=== PATIENT | female | born 1955 ===

== ENCOUNTER 2017-04-06 10:54 | Emergency (ER) | payer BC ==
[2017-04-06 11:19] VITALS: BP 129/88
--- NOTE | 2017-04-06 12:15 | RAD ---
INDICATION: Left toe injury is COMPARISON: None TECHNIQUE: 3 views views were obtained. There is no lateral image FINDINGS: There is no definitive fracture. Evaluation is limited due to the presence of hammertoe deformities. If there is a particular digit of concern then coned down views of the infected digit to include a lateral view is recommended. The soft tissues appear normal. IMPRESSION: HAMMERTOE DEFORMITIES. NO DEFINITIVE FRACTURE (SEE ABOVE)
--- NOTE | 2017-04-06 13:02 | UC ---
Lower Extremity/Ankle HPI - HPI Summary HPI Summary: Patient presents with complaints of left great toe pain that began after she got up from the floor, she thinks she must have hyper-extended the toe, and now she reports throbbing pain, she is having difficulty walking on it, she states it is swollen, red and warm. She states the pain radiates up to the middle of her foot now. - History of Current Complaint Hx Obtained From: Patient ?: No Onset/Duration: Gradual Onset, Lasting Hours Severity Initially: Mild Severity Currently: Severe Pain Intensity: 10 Aggravating Factor(s): Ambulation Alleviating Factor(s): Rest, Elevation, Ice Able to Bear Weight: Yes - but is limping - Risk Factors Gout Risk Factors: Negative DVT Risk Factors: Negative Septic Arthritis Risk Factor: Negative <Reva Corral - Last Filed: 04/06/17 12:55> <Rekha Mott - Last Filed: 04/06/17 13:14> - History of Current Complaint Chief Complaint: UCLowerExtremity Stated Complaint: TOE PAIN Time Seen by Provider: 04/06/17 11:52 - Allergies/Home Medications Allergies/Adverse Reactions: Allergies Allergy/AdvReac Type Severity Reaction Status Date / Time No Known Allergies Allergy Verified 04/06/17 11:15 PMH/Surg Hx/FS Hx/Imm Hx Previously Healthy: Yes - Surgical History Surgical History: None - Family History Known Family History: Positive: Cardiac Disease - Social History Occupation: Employed Full-time Lives: Alone Alcohol Use: None Substance Use Type: None Smoking Status (MU): Heavy Every Day Tobacco Smoker <Reva Corral - Last Filed: 04/06/17 12:55> Review of Systems Constitutional: Negative Skin: Negative Eyes: Negative ENT: Negative Respiratory: Negative Cardiovascular: Negative Gastrointestinal: Negative Genitourinary: Negative Motor: Negative Neurovascular: Negative Musculoskeletal: Decreased ROM, Edema, Myalgia, Other: - redness, warmth and swelling over the left first mt joint. Neurological: Negative Psychological: Negative Is Patient Immunocompromised?: No All Other Systems Reviewed And Are Negative: Yes <Reva Corral - Last Filed: 04/06/17 12:55> Physical Exam Triage Information Reviewed: Yes Appearance: Well-Appearing, Pain Distress Vital Signs: Initial Vital Signs Temp 97.8 F 04/06/17 11:16 Pulse 76 04/06/17 11:16 Resp 16 04/06/17 11:16 BP 129/88 04/06/17 11:16 Pulse Ox 100 04/06/17 11:16 Vital Signs Reviewed: Yes Eye Exam: Normal ENT Exam: Normal Neck exam: Normal Respiratory Exam: Normal Respiratory: Positive: Lungs clear, Normal breath sounds, No respiratory distress Cardiovascular Exam: Normal Cardiovascular: Positive: RRR, No Murmur Musculoskeletal: Positive: Strength Limited @ - left great toe, inspection, redness, edema noted at the first mc joint. palpation, tenderness on palpation of first mc joint. warm to touch. rom, limited flexion and extension. vasc stong PP, neuro no deficits to touch distally., ROM Limited @, Edema @ <Reva Corral - Last Filed: 04/06/17 12:55> Vital Signs: Initial Vital Signs Temp 97.8 F 04/06/17 11:16 Pulse 76 04/06/17 11:16 Resp 16 04/06/17 11:16 BP 129/88 04/06/17 11:16 Pulse Ox 100 04/06/17 11:16 <Rekha Mott - Last Filed: 04/06/17 13:14> Lower Extremity Course/Dx - Course Course Of Treatment: Patient presents 2 days s/p hyper-extension with inability to walk, work. Xrays were obtained and were read by the radiologists and reviwed with the patient as negative. She presents with possible tendon injury, and cellulitis. he was treated with Keflex 500 mg by mouth four times daily, and pain was addressed with norco. She was referred to orthopedists, and taken out of work until released by another physician. she verbalized understanding of and was in agreement with the discharge plan. - Differential Dx/Diagnosis Differential Diagnosis/HQI/PQRI: Cellulitis, Sprain - left great toe strain left great toe sprain, Strain, Tendonitis Provider Diagnoses: left great toe sprain. left great toe strain. tedonitis. cellulitis <Reva Corral - Last Filed: 04/06/17 12:55> Discharge <Reva Corral - Last Filed: 04/06/17 12:55> <Rekha Mott - Last Filed: 04/06/17 13:14> - Discharge Plan Condition: Stable Disposition: HOME Prescriptions: Cephalexin CAP* [Keflex CAP*] 500 mg PO QID #40 cap HYDROcodone/ACETAMIN 5-325 MG* [Rougon 5-325 TAB*] 1 tab PO Q4H PRN #14 tab MDD 6 PRN Reason: Pain Patient Education Materials: Sprain (ED), Cellulitis (ED) Forms: *Work Release Referrals: No Primary Care Phys,NOPCP [Primary Care Provider] - Krista Gonzales MD [Medical Doctor] - Images Feet (Multiple View): 1 - area of redness, swelling and warmth, <Reva Corral - Last Filed: 04/06/17 12:55> Attestation Statement User Type: Provider - I was available for consult. This patient was seen by the [facility]. The patient was not presented to, seen by, or examined by me. David <Rekha Mott - Last Filed: 04/06/17 13:14>
== END 2017-04-06 13:15 | disposition home or self-care (01) ==
LOC: UCEAST 10:54
DX: S93.502A Unspecified sprain of left great toe, initial encounter (principal); M77.9 Enthesopathy, unspecified; L03.90 Cellulitis, unspecified; X50.9XXA Other and unspecified overexertion or strenuous movements or postures, initial encounter; Y92.9 Unspecified place or not applicable; Z72.0 Tobacco use
CPT/HCPCS: 99202; G0463